=== PATIENT | female | born 1990 | race Caucasian/White ===

== ENCOUNTER 2018-07-10 08:14 | Inpatient (IN) | payer BC ==
[2018-07-10] MEDS: Lactated Ringer's 1,000 ML IV SCH ×2 (10:35→11:00)
[2018-07-10] MEDS ORDERED: CEFAZOLIN/Water 2 GM/20 ML SYRINGE SLOW IVP SCH (11:01)
[2018-07-10] MEDS ORDERED: Ropivacaine 0.2% 550 ML 750 ML NERVE BLCK SCH (11:01)
[2018-07-10] MEDS ORDERED: Promethazine HCl 25 MG/ML VIAL IM PRN ×2 (11:01→13:15)
[2018-07-10] MEDS ORDERED: Ondansetron HCl/PF 4 MG/2 ML Vial IVP PRN ×4 (11:01→15:45)
[2018-07-10] MEDS ORDERED: Bicitra 30 ML UDCUP PO SCH (11:01)
[2018-07-10] MEDS ORDERED: Ropivacaine HCl/PF 750 ML in Premix Bag 1 BAG NERVE BLCK SCH (11:15)
[2018-07-10 11:17] VITALS: BMI 28.6
[2018-07-10 11:21] LABS: Hemoglobin 11.8 g/dL (12.0-16.0); Mean Corpuscular HGB CONC 33.2 g/dL (32.0-36.0); Mean Corpuscular Volume 90.4 fL (78.0-98.0); Mean Platelet Volume 6.9 fL (7.4-10.4); Platelet Count 193 thou/uL (130-400); RBC Distribution Width 12.1 % (11.5-14.5); Red Blood Cell (RBC) Count 3.93 mill/uL (4.20-5.40); White Blood Cell (WBC) Count 6.9 thou/uL (4.8-10.8)
[2018-07-10] MEDS ORDERED: Morphine PF 1 MG/ML SYR ONE (11:25)
[2018-07-10] MEDS ORDERED: Lidocaine 1% PF 5 ML VIAL ONE (11:26)
[2018-07-10] MEDS ORDERED: Bupivacaine 0.75% W/DEXTROSE 8.25% 2 ML AMP ONE (11:26)
[2018-07-10] MEDS ORDERED: Oxytocin 10 UNITS/ML VIAL ONE (11:26)
[2018-07-10 12:02] LABS: Hep B Surf Ag Non-Reactive S/CO (NonReactive); Syphilis Antibody Nonreactive (Nonreactive); Syphilis Antibody Index 0.05 S/CO (<1.00 Non-Reactive)
--- NOTE | 2018-07-10 12:14 | PDOC.LDHP ---
Labor and Delivery H&P Chief complaint: scheduled section HPI: Pt is a 27yo G1 @ 39+ weeks for scheduled CS for breech presentation, declines ECV. Current gestational age (weeks): 39 Due date: 07/16/18 Grav: 1 Para: 0 Current complications: none, breech Abnormal US findings: Yes (breech) Current medications: pre-greta vitamins Previous surgical history: none Allergies/Adverse Reactions: Allergies Allergy/AdvReac Type Severity Reaction Status Date / Time No Known Allergies Allergy Unverified 07/10/18 10:54 Social history: none - Physical Exam Vital signs reviewed and normal: yes General: resting Heart: RRR Lungs: CTAB Abdomen: gravid Extremeties: no edema FHT: category 1 - OB Labs Blood type: A RH: positive Antibody Screen: negative HIV: negative RPR: negative HEPSAg: negative 1 hour GCT: negative GBS: negative Rubella: immune - Assessment L&D Assessment: scheduled primary section (for breech presentation) - Plan Plan: admit to L&D, to OR for section
[2018-07-10] MEDS ORDERED: ePHEDrine/0.9% NaCl/PF SYRINGE 50 mg/10 ml ONE (12:26)
[2018-07-10] MEDS ORDERED: Ondansetron HCl/PF 4 MG/2 ML Vial ONE (12:33)
[2018-07-10] MEDS ORDERED: Bupivacaine 0.25% HCL 30 ML VIAL ONE (12:45)
--- NOTE | 2018-07-10 13:02 | PDOC.OPDEL ---
OB Operative/Delivery Note Delivery Dr/Surgeon: Randal Assist: Augusto Pre-Delivery Diagnosis: scheduled section Procedure/Post Delivery Dx: primary low transverse CS Weeks gestation: 39 Anesthesia: spinal - Findings A Sex: female Weight: 6 lb 9 oz - 1 min: 8 - 5 min: 9 - Additional Findings/Plan findings: low transverse hysterotomy without extension, normal uterus, normal tubes, normal ovaries Estimated blood loss: 600ml, QBL pending Post delivery plan: routine recovery
[2018-07-10] MEDS ORDERED: Eucerin (Mineral Oil/Petrolatum,White) 30 gm Jar TOP PRN (13:15)
[2018-07-10] MEDS ORDERED: diphenhydrAMINE 50 MG/ML VIAL IVP PRN (13:15)
[2018-07-10] MEDS ORDERED: Meperidine HCl/PF 25 MG/ML VIAL SLOW IVP PRN (13:15)
[2018-07-10] MEDS ORDERED: Ketorolac Tromethamine 30 MG/ML VIAL IVP SCH (13:15)
[2018-07-10] MEDS ORDERED: Ketorolac Tromethamine 30 MG/ML VIAL IVP PRN (13:15)
[2018-07-10] MEDS ORDERED: Naloxone HCl 0.4 mg/ml Vial IV PRN (13:15)
[2018-07-10] MEDS ORDERED: HYDROmorphone 2 MG/ML VIAL SLOW IVP PRN (13:15)
[2018-07-10] MEDS ORDERED: Communication Order-Pharmacy FS SCH (13:15)
[2018-07-10] MEDS ORDERED: Promethazine HCl 25 MG SUPP PR PRN (13:15)
[2018-07-10] MEDS ORDERED: Naloxone HCl 0.4 mg/ml Vial IVP PRN ×2 (13:15)
--- NOTE | 2018-07-10 14:42 | OP ---
DATE OF PROCEDURE: 07/10/2018 PROCEDURES PERFORMED: Primary low-transverse section and placement of ON-Q nerve block pump . SURGEON: Chuck Tee D.O. DIRECTOR BUSINESS TRAVEL: Janes Casas M.D. COMPLICATIONS: None. ANESTHESIA: Spinal per Dr. Ely. ESTIMATED BLOOD LOSS: 600 mL QBL: 345 mL OPERATIVE FINDINGS: 1. Vigorous female delivered from ifrah breech presentation with Apgars 8 and 9 and weight 6 pounds 9 ounces to nursery. 2. Placenta delivered intact. 3. Normal appearing uterus, tubes, and ovaries bilaterally. 4. Low transverse hysterotomy without extension. 5. Surgical sites hemostatic. PREOPERATIVE DIAGNOSES: A 27-year-old G1 at 39 weeks and 1-day with in breech presentation, d eclines external cephalic version. POSTOPERATIVE DIAGNOSES: Status post primary low-transverse section, placement of an ON-Q n erve block pump. PROCEDURE DETAILS: The patient was taken back to the OR with IV fluids running. Once she was in the OR, she set up for spinal anesthesia. Once the spinal anesthesia was obtained, the patient was plac ed in dorsal supine position with a left lateral tilt. SCDs were applied to the lower extremities fo r DVT prophylaxis. A Whitlock catheter was placed using sterile technique and 2 grams of Ancef were adm inistered to the patient's IV. The patient's abdomen was prepped and draped in normal fashion for ce sarean section, surgeons were scrubbed in and anesthesia was tested and found to be adequate. A Pfan nenstiel skin incision was made with the scalpel. The skin incision was carried down through the sub cutaneous tissue to the fascia. Once the fascia was reached, it was incised in the midline and exten ded superior laterally using curved Hussein scissors. Alisson clamps were placed at the superior border of the fascia, which was sharply and bluntly dissected off the rectus abdominis muscles. In similar fashion, the fascia was dissected away from the rectus muscles down towards the pubic symphysis. The inferior aspect of the fascia was dissected down towards the pubic symphysis. Next, the rectus musc les were tented off the abdomen. The peritoneum was entered using fine dissection technique with the scalpel. Once the peritoneum was entered, it was bluntly and laterally stretched. Patrice O retract or was placed in the abdominal peritoneal cavity for retraction, visualization and protection of the wound. Metzenbaum scissors were used to dissect away the bladder flap. The bladder flap was dissect ed away from the planned hysterotomy site. Low transverse hysterotomy was made with the scalpel. Th e hysterotomy was bluntly entered and stretched using the Kwok maneuver. Clear fluid was noted. The 's buttock was the presenting part of the hysterotomy with gentle fundal pressure, the hips we re delivered through the hysterotomy with the surgeon's hands grasping at the anterior superior iliac spine and guiding the buttock and upper extremities through the hysterotomy. The right upper extrem ity spontaneously delivered and the left upper extremity was and head was delivered with gentle rotat ion. The was delivered without difficulty. The nose and mouth were suctioned. The cord was doubly clamped and cut and the was handed off to special care nurses in attendance. Cord bloo d was collected. The placenta was delivered. The uterus was exteriorized, massaged to firm, and lui ared of clot and debris, it was returned to the abdominal cavity. The hysterotomy was closed in a ru nning locked fashion using Monocryl suture. The hysterotomy was inspected after closure with no area s of bleeding noted. The hysterotomy and pericolic gutters were irrigated and suctioned dry. Hyster otomy was inspected again and no bleeding was noted. The fundus was noted to be very firm. The Brian is O retractor was removed from the abdominal cavity. The rectus fascia and muscles were inspected w ith no areas of bleeding noted. The peritoneum was reapproximated with chromic suture. Two ON-Q cat heter tips were placed under direct visualization through the skin, subcutaneous tissue and fascia. They were guided down towards the corners of the incision and placed between the rectus fascia and re ctus muscles. They were primed with Marcaine. A small defect approximately 1 cm defect was noted in the fascia superiorly in the midline. The defect was reapproximated with chromic suture using a fig [id number] stitch. The fascia was then closed with PDS suture from corner to corner. The subcutan eous tissue was irrigated and dried, no areas of bleeding were noted. The subcutaneous tissue was re approximated with plain gut suture. The skin was closed with 4-0 Monocryl and dressed with Dermabond dressing. The patient's uterus was again noted to be firm. The counts were correct x2.
[2018-07-10] MEDS ORDERED: NS / Oxytocin 40 units/1000ml 1,000 ML ONE (15:10)
[2018-07-10] MEDS ORDERED: Adacel (T-DAP) 0.5 ML VIAL IM ONE (15:45)
[2018-07-10] MEDS ORDERED: Lanolin Ointment 7 GM TUBE TOP PRN (15:45)
[2018-07-10] MEDS ORDERED: diphenhydrAMINE 25 MG CAP PO PRN (15:45)
[2018-07-10] MEDS ORDERED: Bisacodyl 10 MG SUPP PR PRN (15:45)
[2018-07-10] MEDS ORDERED: Lactated Ringer's 1,000 ML IV SCH (15:45)
[2018-07-10] MEDS ORDERED: NS / Oxytocin 40 units/1000ml 1,000 ML IV SCH (15:45)
[2018-07-10] MEDS: Ferrous Sulfate 325 MG TAB PO SCH (18:43)
[2018-07-10] MEDS: Simethicone Chewable 80 MG TAB PO PRN (20:32)
[2018-07-10] MEDS: Docusate Calcium (SURFAK) 240 MG CAP PO SCH (22:44)
[2018-07-11] MEDS ORDERED: Acetaminophen/Codeine 30-300mg Tablet PO PRN (01:15)
[2018-07-11 05:51] LABS: Hemoglobin 11.1 g/dL (12.0-16.0); Mean Corpuscular HGB CONC 35.2 g/dL (32.0-36.0); Mean Corpuscular Hemoglobin 31.8 pg (27.0-31.0); Mean Corpuscular Volume 90.4 fL (78.0-98.0); Mean Platelet Volume 7.1 fL (7.4-10.4); Platelet Count 185 thou/uL (130-400); RBC Distribution Width 12.1 % (11.5-14.5); Red Blood Cell (RBC) Count 3.47 mill/uL (4.20-5.40); White Blood Cell (WBC) Count 10.8 thou/uL (4.8-10.8)
[2018-07-11] MEDS: Simethicone Chewable 80 MG TAB PO PRN (06:08)
[2018-07-11] MEDS: Ibuprofen 800 MG TAB PO SCH ×3 (06:08→21:33)
[2018-07-11] MEDS: Docusate Calcium (SURFAK) 240 MG CAP PO SCH ×2 (08:45→21:34)
[2018-07-11] MEDS: Prenatal Vitamin 1 TAB PO SCH (08:45)
[2018-07-11] MEDS: Ferrous Sulfate 325 MG TAB PO SCH ×2 (10:57→17:19)
--- NOTE | 2018-07-11 12:41 | PDOC.PP ---
Post Progress Note Post Day #: 1 Subjective: tolerating regular diet, no concerns, min discomfort, breast feeding PO intake tolerated: yes Flatus: yes Ambulation: yes Vital Signs (12 hours) Temp Pulse Resp BP 07/11/18 12:00 98.0 F 94 16 112/73 07/11/18 07:30 98.6 F 80 18 109/67 07/11/18 04:00 97.9 F 89 18 118/66 Weight Weight 167 lb - Physical Examination General: NAD Respiratory: non-labored breathing Abdominal: appropriately TTP Fundus firm & at: below umb Extremities: negative homans (B) Skin: CS incision dry & intact, no rash Psychiatric: A&Ox3, normal affect Result Diagrams: 07/11/18 05:22 Additional Labs: Post Labs Blood Type A POSITIVE 07/10/18 11:11 Hep Bs Antigen Non-Reactive S/CO (NonReactive) 07/10/18 11:11 (1) delivery delivered Code(s): O82 - ENCOUNTER FOR DELIVERY WITHOUT INDICATION Status: Acute (2) delivery indicated due to breech presentation Code(s): O32.1XX0 - MATERNAL CARE FOR BREECH PRESENTATION, UNSP Status: Acute - Assessment/Plan POD1 doing well, post op goals met, likely DC tomorrow.
[2018-07-11] MEDS: Acetaminophen/Codeine 30-300mg Tablet PO PRN (12:46)
[2018-07-12] MEDS: Ibuprofen 800 MG TAB PO SCH (05:25)
[2018-07-12] MEDS: Simethicone Chewable 80 MG TAB PO PRN (05:25)
[2018-07-12 07:55] VITALS: BP 122/66; TEMP 98.4
[2018-07-12] MEDS: Ferrous Sulfate 325 MG TAB PO SCH (08:33)
[2018-07-12] MEDS: Prenatal Vitamin 1 TAB PO SCH (08:33)
[2018-07-12] MEDS: Docusate Calcium (SURFAK) 240 MG CAP PO SCH (08:33)
[2018-07-12] MEDS: Acetaminophen/Codeine 30-300mg Tablet PO PRN (08:34)
--- NOTE | 2018-07-12 08:38 | PDOC.PP ---
Post Progress Note Post Day #: 2 Subjective: minimal pain, doing well, tolerating diet, ambulating, baby feeding well PO intake tolerated: yes Flatus: yes Ambulation: yes Vital Signs (12 hours) Temp Pulse Resp BP 07/12/18 07:54 98.4 F 82 18 122/66 07/12/18 05:20 98.2 F 80 20 102/72 07/12/18 00:45 98.4 F 76 20 118/74 Weight Weight 167 lb - Physical Examination Respiratory: non-labored breathing Abdominal: no distention Fundus firm & at: below umb Extremities: negative homans (B) Skin: CS incision dry & intact, no rash Neurological: no gross focal deficits Psychiatric: A&Ox3, normal affect Result Diagrams: 07/11/18 05:22 Additional Labs: Post Labs Blood Type A POSITIVE 07/10/18 11:11 Hep Bs Antigen Non-Reactive S/CO (NonReactive) 07/10/18 11:11 (1) delivery delivered Code(s): O82 - ENCOUNTER FOR DELIVERY WITHOUT INDICATION Status: Acute (2) delivery indicated due to breech presentation Code(s): O32.1XX0 - MATERNAL CARE FOR BREECH PRESENTATION, UNSP Status: Acute - Assessment/Plan POD2 doing well, desires DC home later today. FU 2 and 6 weeks with .
== END 2018-07-12 12:00 | disposition home or self-care (01) | DRG 766 ==
LOC: L&D 09:57 → 3SW 15:27 → EDSTATUS 07-16 08:13
PROVIDERS: ADMIT Obstetrics & Gynecology; ATTEND Obstetrics & Gynecology
PROC: 10D00Z1 Extraction of Products of Conception, Low, Open Approach (ICD-10-PCS; principal; 2018-07-10)
DX: O32.1XX0 Maternal care for breech presentation, not applicable or unspecified (principal); Z3A.39 39 weeks gestation of pregnancy; Z37.0 Single live birth
CPT/HCPCS: 36415; 51702; 85027; 86780; 86850; 86900; 86901; 87340; A4306; J1885; J2001; J2274; J2405; J2590; J2795; J3490; S0020